=== PATIENT | male | born 1955 | race Caucasian/White ===

== ENCOUNTER 2016-09-06 07:33 | Day surgery (SDC) | payer BC ==
--- NOTE | ~2016-09-06 | OP ---
Record Of Operation [facility] [address] [place]. [address] NAME: VIVEK BALTAZAR : 53 [place] [facility] [place] [id number] AGE: 60 ADM/REG DATE : 09/06/16 MR#: [id number] REPORT SERV DATE: 09/06/16 DICTATED BY: CHINEDU MUIR DATE: 09/06/16 REPORT STATUS : Draft TRANSCRIBED BY: MODL DATE: 09/06/16 DATE OF PROCEDURE: 09/06/2016 PREOPERATIVE DIAGNOSIS: Bilateral inguinal hernia. POSTOPERATIVE DIAGNOSIS: Bilateral inguinal hernia. PROCEDURE: Laparoscopic reduction and mesh patch repair of bilateral inguinal hernia. DESCRIPTION OF OPERATIVE PROCEDURE: The patient was brought to operating suite, placed in supine position, underwent satisfactory general endotracheal anesthesia without incident. The skin of the abdomen was scrubbed, prepped, and draped in usual sterile fashion. 0.5% Marcaine with epinephrine was utilized as supplemental local anesthesia at all intended trocar sites. Initially, an infraumbilical incision was performed dissecting through the skin and subcutaneous tissue. Inferolateral retraction on the left exposed the medial aspect of the anterior rectus sheath, this was incised longitudinally. The rectus muscle was identified and retracted laterally exposing the posterior rectus sheath. A preperitoneal dissection balloon was inserted posterior to the rectus sheath to the level of the pubic tubercle. It was insufflated under direct camera visualization creating a preperitoneal dissection plane bilaterally. This balloon was then replaced with a structural balloon and CO2 was insufflated into the preperitoneal space for pressures of 15 mmHg bilaterally. Two additional 5 mm trocars were placed in the infraumbilical midline under direct visualization. Completion of preperitoneal dissection was performed bilaterally revealing a direct defect on the right and indirect defect on the left. The inferior epigastric vessels, the cord structures, and Hesselbach's triangle were dissected and cleaned of overlying tissue. Two separately placed pieces of Bard 3DMax polypropylene mesh size large oriented left and right were utilized for the repair. They were placed in local anesthesia, rolled up, and then placed in the preperitoneal space. They were unrolled over the inguinal canals bilaterally covering Hesselbach's triangle, the inferior epigastric vessels, and allowing the cord structures to egress below the lower edge of the ring. Multiple firings of the 5 mm helical tacker were then utilized to plicate the patch in position predominantly on the pubic tubercle in the rectus sheath. Hemostasis was assured. The preperitoneal space was allowed to collapse. CO2 was milked from the preperitoneal space after removal of all trocars. No muscular bleeding was noted. The left anterior rectus sheath was closed with [id number] suture of 0 Vicryl, Record Of Operation [address] [place]. [address] NAME: VIVEK BALTAZAR : 53 [place] [facility] [place] [id number] AGE: 60 ADM/REG DATE : 09/06/16 MR#: [id number] REPORT SERV DATE: 09/06/16 DICTATED BY: CHINEDU MUIR DATE: 09/06/16 REPORT STATUS : Draft TRANSCRIBED BY: NILES DATE: 09/06/16 subcutaneous tissue closed at all sites with interrupted 4-0 Vicryl, running subcuticular stitch 4-0 Vicryl for the skin. Then Dermabond skin adhesive placed. The patient tolerated the procedure well, was returned to PACU in stable condition. At the termination of the procedure, sponge, needle, lap, and instrument counts were correct x3. ESTIMATED BLOOD LOSS: Less than 5-10 mL. ERVIN/NILES Chinedu Muir M.D. / [id number] CC: Thomas Perez MD
[~2016-09-06 07:33] MED LIST: ASAB PO; BRILINTA90 MG PO; C5 PO; COREG3 PO; D 5000 PO; DHE1 PO; FISH-EPA1000 MG PO; JANUMET XR 50-1 EACH PO; LIPITOR10 PO; PCET PO
== END 2016-09-06 23:59 | disposition home or self-care (01) ==
LOC: SDC 07:33
PROVIDERS: Specialist
PROC: 0YUA4JZ Supplement Bilateral Inguinal Region with Synthetic Substitute, Percutaneous Endoscopic Approach (ICD-10-PCS; principal; 2016-09-06 09:00)
DX: K40.20 Bilateral inguinal hernia, without obstruction or gangrene, not specified as recurrent (principal); I25.10 Atherosclerotic heart disease of native coronary artery without angina pectoris; I10 Essential (primary) hypertension; E78.5 Hyperlipidemia, unspecified; E88.1 Lipodystrophy, not elsewhere classified; K21.9 Gastro-esophageal reflux disease without esophagitis; M19.90 Unspecified osteoarthritis, unspecified site; F40.240 Claustrophobia; Z95.5 Presence of coronary angioplasty implant and graft; Z88.1 Allergy status to other antibiotic agents; Z79.82 Long term (current) use of aspirin; Z79.899 Other long term (current) drug therapy; Z96.1 Presence of intraocular lens; Z98.41 Cataract extraction status, right eye; Z98.42 Cataract extraction status, left eye; Z98.890 Other specified postprocedural states; Z96.642 Presence of left artificial hip joint
CPT/HCPCS: 80053; 82962; 85014; 85018; 93005; A9270-GY; C1727; C1781; J0690; J1170; J1885; J2250; J2370; J2405; J2710; J3010